=== PATIENT | female | born 1985 | race African-American/Black ===

== ENCOUNTER 2016-08-04 17:45 | Emergency (ER) | payer OTHER ==
[~2016-08-04] VITALS: Ht 160 cm; Wt 81.2 kg
[~2016-08-04 17:45] MED LIST: CIPROFLOXIN HC2.5 M1 OPHTHALMIC; IBUPROFEN 400400 M1 PO; LANOLIN56 GM TOP; NOHOMEMEDICATIONS; PREDNISONE 20 M20 M1 PO; TUCKS MEDICATE1 EAC1 TOP
[2016-08-04 17:57] VITALS: BP 108/63
[2016-08-04] MEDS ORDERED: MOBIC15 MG PO (18:52)
== END 2016-08-04 19:07 | disposition home or self-care (01) ==
LOC: ER 17:45
DX: S93.402A Sprain of unspecified ligament of left ankle, initial encounter (principal); F17.210 Nicotine dependence, cigarettes, uncomplicated; F10.99 Alcohol use, unspecified with unspecified alcohol-induced disorder; W20.8XXA Other cause of strike by thrown, projected or falling object, initial encounter; Y93.89 Activity, other specified; Y92.89 Other specified places as the place of occurrence of the external cause; Y99.8 Other external cause status

== ENCOUNTER 2020-06-03 22:30 | Emergency (ER) | payer OTHER ==
[~2020-06-03] VITALS: Ht 160 cm; Wt 83.9 kg
[~2020-06-03 22:30] MED LIST changes: +MOBIC15 MG PO; +NORCO 5-325 TA1 EACH PO; +TOBREX5 ML OPHTHALMIC
[2020-06-03 23:50] VITALS: BP 104/59
== END 2020-06-03 23:51 | disposition home or self-care (01) ==
LOC: ER 22:30
DX: S51.011A Laceration without foreign body of right elbow, initial encounter (principal); F17.210 Nicotine dependence, cigarettes, uncomplicated; W26.8XXA Contact with other sharp object(s), not elsewhere classified, initial encounter; Y93.89 Activity, other specified; Y92.89 Other specified places as the place of occurrence of the external cause; Y99.8 Other external cause status